=== PATIENT | female | born 1960 | race Caucasian/White ===

== ENCOUNTER → 2016-12-27 | Outpatient (CLI) | payer MEDICAID ==
[~2016-12-27] MED LIST: ADVAIR 250/28 DISKUS IH; ALBUTEROL S0.4 MG/ML PO; ALBUTEROL0.09 MG/A1 IH; ALBUTEROL0.83 MG/ML IH; AMOXICILLIN 50500 MG PO; ATARAX 25MG25 MG/TAB PO; ATIVAN 0.50.5 MG/TAB PO; ATROVENT I0.2 MG/1 M IH; BACTRIM DS 8001 TAB PO; BUSPIRONE; CELEBREX PO; CELEBREX200 MG PO; CELEXA 20MG20 MG/TAB PO; CELEXA40 MG PO; CEPHALEXIN500 M1 PO; CIPRO 500MG TA500 MG PO; CITALOPRAM20 MG PO; CLINDAMYCIN300 MG PO; COMBIVENT INH14.7 GM; COMBIVENT INH14.7 GM IH; DALIRESP500 MCG PO; DESYREL 100MG100 MG PO; DESYREL 50MG50 MG PO; DILAUDID 2MG TAB2 MG PO; DILAUDID 4MG TAB4 MG PO; DOMPERIDONE10 MG/CAP PO; DOXYCYCLINE 10100 MG PO; EXALGO12 MG PO; FLEXERIL; FLEXERIL 1010 MG/TAB PO; GABAPENTIN PO; GABAPENTIN800 MG PO; HCTZ 25MG TAB25 MG PO; LEVAQUIN 750MG750 M1 PO; LITHIUM 30300 MG/CAP PO; LODINE400 MG PO; LORTAB 5/500 501 TAB PO; LORTAB 7.5/5001 TAB PO; LYRICA 75MG CAP75 MG PO; MIDRIN; MIRALAX 255 GM255 GM; MIRALAX PA17 GM/Dose PO; MIRTAZAPINE7.5 MG PO; MORPHINE; MORPHINE 1515 MG/TAB PO; MORPHINE SULFAT30 M5 PO; MOTRIN 800800 MG/TAB PO; MS CONTIN 330 MG/TAB PO; MS CONTIN30 MG PO; MUSCLE RELAXER; MYRBETR25MG PO; NAPROSYN500 MG PO; NEURONTIN600 MG/TAB PO; NORCO 325 MG-51 TAB PO; NORCO 325 MG-7.1 TAB PO; PEGASYS180 MCG/ML MR; PEPCID40 MG PO; PERCOCET 325 MG1 TA2 PO; PHENERGAN 25 TA25 MG PO; PHENOBARBITAL; PREDNISONE20 MG PO; PRIL40; PRIL40 PO; PRILOSEC40 MG PO; PRO AIR INHALER; PROAIR HFA0.09 MG/AC; PROAIR HFA0.09 MG/AC IH; PROMETHAZINE12.5 M5 PO; PROVENTIL0.09 MG/A1 IH; ProAir; REGLAN 10MG10 MG/TAB PO; REMERON 15M15 MG/TA1 PO; RT ADVAIR 128 DISKUS IH; RT ADVAIR 228 DISKUS IH; RT SPIRIVA18 MCG IH; SEPTRA DS 8001 TAB PO; STIOLTO RESPIMAT4 GM IH; SYMBICORT1 AE1 IH; THEO-DUR 2200 MG/TAB PO; TRAMADOL; TRAZADONE; TRAZODONE HCL100 MG PO; TRIAMCINOLONE0.1% TP; ULTRAM 50MG TAB50 MG PO; VALIUM 5MG T5 MG/TAB PO; VALTREX1 GM PO; VIBRAMYCIN HYC100 MG PO; VISTARIL 2525 MG/CAP PO; VISTARIL50 MG PO; VOLTAREN 75 DR75 MG PO; ZANAFLEX 4MG TAB4 MG PO; ZOFRAN 4MG T4 MG/TAB PO; ZOLOFT; ZOLOFT100 MG PO; [UNRECOGNIZED DRUG - REMARK]
== END ==
LOC: COL.RAD 10:04
DX: M75.112 Incomplete rotator cuff tear or rupture of left shoulder, not specified as traumatic (principal); M75.22 Bicipital tendinitis, left shoulder; S46.011A Strain of muscle(s) and tendon(s) of the rotator cuff of right shoulder, initial encounter; M13.812 Other specified arthritis, left shoulder; M75.52 Bursitis of left shoulder; X58.XXXA Exposure to other specified factors, initial encounter

== ENCOUNTER 2017-06-12 15:05 | Emergency (ER) | payer MEDICAID ==
[~2017-06-12] VITALS: Ht 160 cm; Wt 54.5 kg
[~2017-06-12 15:05] MED LIST changes: -VOLTAREN 75 DR75 MG PO
[2017-06-12 15:11] VITALS: BP 111/50; TEMP 98.2
[2017-06-12] MEDS ORDERED: FLEXERIL 1010 MG/TAB PO (15:53)
[2017-06-12] MEDS ORDERED: VOLTAREN 75 DR75 MG PO (15:53)
[2017-06-12 16:27] VITALS: PULSE 93
== END 2017-06-12 16:27 | disposition home or self-care (01) ==
LOC: COL.ER 15:05
DX: M25.511 Pain in right shoulder (principal); J44.9 Chronic obstructive pulmonary disease, unspecified; F17.210 Nicotine dependence, cigarettes, uncomplicated; Z98.890 Other specified postprocedural states
CPT/HCPCS: J1885

== ENCOUNTER 2017-11-18 13:21 | Emergency (ER) | payer MEDICAID ==
[~2017-11-18] VITALS: Ht 160 cm; Wt 60.0 kg
[~2017-11-18 13:21] MED LIST changes: +VOLTAREN 75 DR75 MG PO
[2017-11-18 13:24] VITALS: BP 138/89; PULSE 94; TEMP 98.2
[2017-11-18] MEDS ORDERED: DOXYCYCLINE HY100 MG PO (14:47)
== END 2017-11-18 15:06 | disposition home or self-care (01) ==
LOC: COL.ER 13:21
DX: L03.114 Cellulitis of left upper limb (principal); L03.113 Cellulitis of right upper limb; B19.20 Unspecified viral hepatitis C without hepatic coma; F17.210 Nicotine dependence, cigarettes, uncomplicated; Z98.51 Tubal ligation status; Z98.890 Other specified postprocedural states

== ENCOUNTER 2017-12-06 16:22 | Emergency (ER) | payer MEDICAID ==
[~2017-12-06] VITALS: Ht 160 cm; Wt 59.1 kg
[~2017-12-06 16:22] MED LIST changes: +DOXYCYCLINE HY100 MG PO
[2017-12-06 16:24] VITALS: BP 93/57; TEMP 98.9
[2017-12-06 17:15] LABS: BASO # 0.1 (0.0-0.2); BASO % 0.9 % (0.0-2.0); EOS # 0.2 (0.0-0.7); EOS % 3.3 % (0-4.0); GRAN # 4.2 (1.4-6.5); GRAN % 63.4 % (42.2-75.2); HEMATOCRIT 41.3 % (37.0-47.0); HEMOGLOBIN 13.6 g/dl (12.5-16.0); LYMPH # 1.7 (1.2-3.4); MEAN CELL VOLUME 86 fl (80.0-100.0); MEAN CORPUSCULAR HEMOGLOBIN 29 pg (27.0-31.0); MEAN CORPUSCULAR HGB CONC 33 g/dl (33.0-37.0); MONO # 0.5 (0.1-0.6); MONO % 7.2 % (1.7-9.3); PLATELET COUNT 330 K/mm3 (130-400); RED BLOOD COUNT 4.78 M/mm3 (4.10-5.30)
[2017-12-06 17:45] LABS: ERYTHROCYTE SEDIMENTATION RATE 14 mm/hr (0-30)
[2017-12-06 18:13] VITALS: PULSE 91
== END 2017-12-06 18:14 | disposition home or self-care (01) ==
LOC: COL.ER 16:22
PROVIDERS: Physician Assistant
DX: M17.11 Unilateral primary osteoarthritis, right knee (principal); I10 Essential (primary) hypertension; F43.10 Post-traumatic stress disorder, unspecified; F31.9 Bipolar disorder, unspecified; B19.20 Unspecified viral hepatitis C without hepatic coma; K21.9 Gastro-esophageal reflux disease without esophagitis; F17.210 Nicotine dependence, cigarettes, uncomplicated; Z90.49 Acquired absence of other specified parts of digestive tract; Z98.890 Other specified postprocedural states; Z98.51 Tubal ligation status; Z88.0 Allergy status to penicillin

== ENCOUNTER 2018-04-17 11:48 | Emergency (ER) | payer MEDICAID ==
[~2018-04-17] VITALS: Ht 160 cm; Wt 54.5 kg
[2018-04-17 11:49] VITALS: BP 142/78; TEMP 98.1
[2018-04-17] MEDS ORDERED: PROAIR HFA0.09 MG/AC IH (11:52)
[2018-04-17] MEDS ORDERED: DALIRESP500 MCG PO (11:52)
[2018-04-17 12:23] LABS: BASO # 0.1 (0.0-0.2); BASO % 1.1 % (0.0-2.0); EOS # 0.3 (0.0-0.7); EOS % 5.1 % (0-4.0); GRAN # 3.9 (1.4-6.5); GRAN % 58.3 % (42.2-75.2); HEMATOCRIT 39.1 % (37.0-47.0); HEMOGLOBIN 12.9 g/dl (12.5-16.0); LYMPH # 1.8 (1.2-3.4); LYMPH % 27.2 % (20.0-51.0); MEAN CELL VOLUME 89 fl (80.0-100.0); MEAN CORPUSCULAR HEMOGLOBIN 30 pg (27.0-31.0); MEAN CORPUSCULAR HGB CONC 33 g/dl (33.0-37.0); MEAN PLATELET VOLUME 10.3 fl (7.4-10.4); MONO # 0.5 (0.1-0.6); MONO % 7.8 % (1.7-9.3); PLATELET COUNT 282 K/mm3 (130-400); RED BLOOD COUNT 4.38 M/mm3 (4.10-5.30); REDCELL DISTRIBUTION WIDTH-CV 13.3 % (11.5-14.5)
[2018-04-17 12:32] LABS: BILIRUBIN,TOTAL 0.1 mg/dL (0.0-1.0); C-REACTIVE PROTEIN 0.9 mg/dL (0.0-0.9); CALCIUM 8.6 mg/dL (8.4-10.2); CREATININE, serum 0.78 mg/dL (0.52-1.25); TOTAL PROTEIN 7.3 gm/dL (6.4-8.2)
[2018-04-17] MEDS ORDERED: MEDROL 4MG DOSPA4 MG PO (12:43)
[2018-04-17] MEDS ORDERED: NORCO 325 MG-51 TAB PO (12:44)
[2018-04-17 12:47] LABS: ERYTHROCYTE SEDIMENTATION RATE 11 mm/hr (0-30)
[2018-04-17 13:00] VITALS: PULSE 99
== END 2018-04-17 13:00 | disposition home or self-care (01) ==
LOC: COL.ER 11:48
PROVIDERS: Family Medicine
DX: S50.02XA Contusion of left elbow, initial encounter (principal); M54.5 Low back pain; G89.29 Other chronic pain; M06.9 Rheumatoid arthritis, unspecified; J44.9 Chronic obstructive pulmonary disease, unspecified; F17.210 Nicotine dependence, cigarettes, uncomplicated; W22.01XA Walked into wall, initial encounter
CPT/HCPCS: J2270; J2550

== ENCOUNTER 2018-05-16 11:45 | Emergency (ER) | payer MEDICAID ==
[~2018-05-16] VITALS: Ht 160 cm; Wt 56.8 kg
[~2018-05-16 11:45] MED LIST changes: +MEDROL 4MG DOSPA4 MG PO
[2018-05-16 11:51] VITALS: BP 147/81; TEMP 98.8
[2018-05-16 13:19] VITALS: PULSE 81
== END 2018-05-16 13:20 | disposition home or self-care (01) ==
LOC: COL.ER 11:45
DX: M54.5 Low back pain (principal); M45.9 Ankylosing spondylitis of unspecified sites in spine; Z90.49 Acquired absence of other specified parts of digestive tract; Z98.890 Other specified postprocedural states
CPT/HCPCS: J2270; J2550

== ENCOUNTER 2018-09-15 14:37 | Emergency (ER) | payer MEDICAID ==
[~2018-09-15] VITALS: Ht 160 cm; Wt 59.1 kg
[2018-09-15] MEDS ORDERED: ALBUTEROL SULFAT3 M3 IH (14:53)
[2018-09-15 15:18] LABS: COLLECTION METHOD CLEAN CATCH
[2018-09-15 15:23] LABS: BASO # 0.1 (0.0-0.2); BASO % 0.8 % (0.0-2.0); EOS # 0.3 (0.0-0.7); EOS % 4.1 % (0-4.0); GRAN # 4.3 (1.4-6.5); GRAN % 55.8 % (42.2-75.2); HEMATOCRIT 40.4 % (37.0-47.0); HEMOGLOBIN 13.1 g/dl (12.5-16.0); LYMPH # 2.3 (1.2-3.4); LYMPH % 29.4 % (20.0-51.0); MEAN CELL VOLUME 92 fl (80.0-100.0); MEAN CORPUSCULAR HEMOGLOBIN 30 pg (27.0-31.0); MEAN CORPUSCULAR HGB CONC 32 g/dl (33.0-37.0); MEAN PLATELET VOLUME 10.4 fl (7.4-10.4); MONO # 0.7 (0.1-0.6); MONO % 9.3 % (1.7-9.3); PLATELET COUNT 295 K/mm3 (130-400); RED BLOOD COUNT 4.37 M/mm3 (4.10-5.30); REDCELL DISTRIBUTION WIDTH-CV 13.6 % (11.5-14.5)
[2018-09-15 15:33] LABS: PH 6 (5-8); SQUAMOUS EPITHELIAL 0-2 /hpf; URINE APPEARANCE Clear; URINE BACTERIA None Seen /hpf; URINE BILIRUBIN Negative (NEGATIVE); URINE BLOOD Negative (NEGATIVE); URINE COLOR Straw; URINE GLUCOSE Negative (NEGATIVE); URINE KETONE Negative (NEGATIVE); URINE LEUKOCYTE ESTERASE Negative (NEGATIVE); URINE NITRATE Negative (NEGATIVE); URINE PROTEIN(semi-quant) Negative (NEGATIVE); URINE RBC None Seen /hpf; URINE UROBILINOGEN Negative (NEGATIVE)
[2018-09-15 15:38] LABS: ALANINE AMINOTRANSFERASE 10 U/L (9-52); ALBUMIN 4.1 gm/dL (3.5-5.0); ALKALINE PHOSPHATASE 94 U/L (50-136); ANION GAP 5 mmol/L (7-16); AST,SGOT 15 U/L (15-37); BILIRUBIN,TOTAL 0.1 mg/dL (0.0-1.0); BLOOD UREA NITROGEN 8 mg/dL (7-17); C-REACTIVE PROTEIN 1.1 mg/dL (0.0-0.9); CALCIUM 9.1 mg/dL (8.4-10.2); CARBON DIOXIDE 29 mmol/L (22-30); CHLORIDE 109 mmol/L (98-107); CREATININE, serum 0.72 mg/dL (0.52-1.25); GLUCOSE 92 mg/dL (74-106); SODIUM 143 mmol/L (137-145); TOTAL PROTEIN 7.4 gm/dL (6.4-8.2)
[2018-09-15 15:46] LABS: TROPONIN-I < 0.012 ng/mL (0.000-0.034)
[2018-09-15 17:10] VITALS: BP 114/71; PULSE 60; TEMP 97.7
== END 2018-09-15 17:10 | disposition home or self-care (01) ==
LOC: COL.ER 14:37
PROVIDERS: Emergency Medicine
DX: S30.0XXA Contusion of lower back and pelvis, initial encounter (principal); R55 Syncope and collapse; Z88.5 Allergy status to narcotic agent; W19.XXXA Unspecified fall, initial encounter; Y92.009 Unspecified place in unspecified non-institutional (private) residence as the place of occurrence of the external cause
CPT/HCPCS: J1170; J1885; J7030

== ENCOUNTER 2018-10-03 18:26 | Emergency (ER) | payer MEDICAID ==
[~2018-10-03] VITALS: Ht 160 cm; Wt 59.1 kg
[~2018-10-03 18:26] MED LIST changes: +ALBUTEROL SULFAT3 M3 IH
[2018-10-03 18:39] VITALS: TEMP 98.4
[2018-10-03 19:24] LABS: BASO # 0.1 (0.0-0.2); BASO % 0.8 % (0.0-2.0); EOS # 0.4 (0.0-0.7); EOS % 5.3 % (0-4.0); GRAN # 4.6 (1.4-6.5); GRAN % 55.4 % (42.2-75.2); HEMATOCRIT 40.1 % (37.0-47.0); HEMOGLOBIN 13.3 g/dl (12.5-16.0); LYMPH # 2.4 (1.2-3.4); MEAN CELL VOLUME 91 fl (80.0-100.0); MEAN CORPUSCULAR HEMOGLOBIN 30 pg (27.0-31.0); MEAN CORPUSCULAR HGB CONC 33 g/dl (33.0-37.0); MEAN PLATELET VOLUME 10.7 fl (7.4-10.4); MONO # 0.8 (0.1-0.6); MONO % 9.1 % (1.7-9.3); PLATELET COUNT 134 K/mm3 (130-400); RED BLOOD COUNT 4.41 M/mm3 (4.10-5.30); REDCELL DISTRIBUTION WIDTH-CV 13.6 % (11.5-14.5)
[2018-10-03 19:33] LABS: ALANINE AMINOTRANSFERASE 15 U/L (9-52); ALBUMIN 4.4 gm/dL (3.5-5.0); ALKALINE PHOSPHATASE 116 U/L (50-136); ANION GAP 8 mmol/L (7-16); AST,SGOT 31 U/L (15-37); BILIRUBIN,TOTAL 0.3 mg/dL (0.0-1.0); BLOOD UREA NITROGEN 8 mg/dL (7-17); CALCIUM 9.7 mg/dL (8.4-10.2); CARBON DIOXIDE 27 mmol/L (22-30); CHLORIDE 108 mmol/L (98-107); CREATININE, serum 0.78 mg/dL (0.52-1.25); GLUCOSE 100 mg/dL (74-106); POTASSIUM 4.3 mmol/L (3.4-5.0); SODIUM 142 mmol/L (137-145); TOTAL PROTEIN 7.8 gm/dL (6.4-8.2)
[2018-10-03 19:46] LABS: TROPONIN-I < 0.012 ng/mL (0.000-0.034)
[2018-10-03] MEDS ORDERED: PREDNISONE20 MG PO (21:06)
[2018-10-03] MEDS ORDERED: DOXYCYCLINE HY100 MG PO (21:06)
[2018-10-03] MEDS ORDERED: TESSALON P100 MG/CAP PO (21:06)
[2018-10-03 21:35] VITALS: BP 108/71; PULSE 100
== END 2018-10-03 21:36 | disposition home or self-care (01) ==
LOC: COL.ER 18:26
PROVIDERS: Emergency Medicine
DX: J44.1 Chronic obstructive pulmonary disease with (acute) exacerbation (principal); I10 Essential (primary) hypertension; F17.210 Nicotine dependence, cigarettes, uncomplicated
CPT/HCPCS: J1885; J7030; J7512

== ENCOUNTER 2018-11-19 07:21 | Outpatient (CLI) | payer MEDICAID ==
[~2018-11-19] VITALS: Ht 160.1 cm; Wt 62.5 kg
[~2018-11-19 07:21] MED LIST changes: +TESSALON P100 MG/CAP PO
[2018-11-19] MEDS ORDERED: BEVESPI AEROS10.7 GM IH (07:41)
[2018-11-19 07:48] VITALS: BP 134/79; PULSE 85; TEMP 97.3
[2018-11-19] MEDS ORDERED: ERY-TAB500 MG PO (08:55)
[2018-11-19 09:10] VITALS: BP 139/82; PULSE 67
--- NOTE | 2018-11-19 09:10 | NUR ---
Report from Meghna KC from [facility]. Loop recorder insertion complete. Pt resting well in bed.
[2018-11-19 09:25] VITALS: BP 120/80; PULSE 87; TEMP 98.8
--- NOTE | 2018-11-19 09:30 | NUR ---
Pt ambulated with cane and SBA.
--- NOTE | 2018-11-19 09:35 | NUR ---
Pt discharged per w/c by nurse with .
== END 2018-11-19 09:38 | disposition home or self-care (01) ==
LOC: COL.CAR 07:21
DX: R55 Syncope and collapse (principal); M19.90 Unspecified osteoarthritis, unspecified site; J45.909 Unspecified asthma, uncomplicated; G89.29 Other chronic pain; F31.89 Other bipolar disorder; K31.84 Gastroparesis; K21.9 Gastro-esophageal reflux disease without esophagitis; K58.8 Other irritable bowel syndrome; E04.9 Nontoxic goiter, unspecified; I35.8 Other nonrheumatic aortic valve disorders; I45.6 Pre-excitation syndrome; R56.9 Unspecified convulsions; Z90.49 Acquired absence of other specified parts of digestive tract; Z88.0 Allergy status to penicillin; Z88.1 Allergy status to other antibiotic agents; Z88.5 Allergy status to narcotic agent; Z88.2 Allergy status to sulfonamides; Z87.891 Personal history of nicotine dependence; Z82.61 Family history of arthritis
CPT/HCPCS: C1764

== ENCOUNTER → 2018-12-12 | Outpatient (CLI) | payer MEDICAID ==
[~2018-12-12] MED LIST changes: +BEVESPI AEROS10.7 GM IH; +ERY-TAB500 MG PO
[2018-12-12 23:07] LABS: RHEUMATOID FACTOR-SCREEN <15 IU/mL (0-29)
== END ==
LOC: COL.LAB 12:23
PROVIDERS: Family Medicine
DX: M25.50 Pain in unspecified joint (principal)

== ENCOUNTER → 2018-12-30 | Outpatient (CLI) | payer MEDICAID | LOC: COL.RAD 11:57 | DX: M47.26 Other spondylosis with radiculopathy, lumbar region (principal); M41.86 Other forms of scoliosis, lumbar region; M48.07 Spinal stenosis, lumbosacral region; M47.22 Other spondylosis with radiculopathy, cervical region; M48.02 Spinal stenosis, cervical region ==

== ENCOUNTER 2019-01-01 10:49 | Outpatient (CLI) | payer MEDICAID ==
[~2019-01-01] VITALS: Ht 160.2 cm; Wt 66.0 kg
[2019-01-01 11:31] LABS: HEMATOCRIT 40.5 % (37.0-47.0); HEMOGLOBIN 13.2 g/dl (12.5-16.0); MEAN CELL VOLUME 89 fl (80.0-100.0); MEAN CORPUSCULAR HEMOGLOBIN 29 pg (27.0-31.0); MEAN CORPUSCULAR HGB CONC 33 g/dl (33.0-37.0); PLATELET COUNT 238 K/mm3 (130-400); RED BLOOD COUNT 4.56 M/mm3 (4.10-5.30); REDCELL DISTRIBUTION WIDTH-CV 13.6 % (11.5-14.5)
[2019-01-01 11:41] LABS: INR 0.9 (0.8-3.0); PROTHROMBIN TIME 10.5 SECONDS (9.7-12.8)
[2019-01-01 11:46] LABS: CREATININE, serum 0.74 (0.52-1.25); POTASSIUM 4.2 mmol/L (3.4-5.0)
[2019-01-01 12:32] VITALS: BP 124/60; PULSE 67
[2019-01-01] MEDS ORDERED: PRINIVIL5 MG PO (13:44)
[2019-01-01 13:59] VITALS: BP 103/59; PULSE 74
--- NOTE | 2019-01-01 13:59 | NUR ---
Report received from [facility].
[2019-01-01 14:15] VITALS: BP 106/61; PULSE 82
[2019-01-01 14:30] VITALS: BP 108/77; PULSE 85
[2019-01-01 14:45] VITALS: BP 103/69; PULSE 90
[2019-01-01 15:00] VITALS: BP 105/62; PULSE 70
--- NOTE | 2019-01-01 15:05 | NUR ---
Discharge instructions given to pt.Pt verbalizes understanding.INT removed,catheter tip intact.Pt escorted out via wheelchair by this nurse.
== END 2019-01-01 15:08 | disposition home or self-care (01) ==
LOC: COL.RAD 10:49
PROVIDERS: Internal Medicine Cardiovascular Disease
DX: I34.8 Other nonrheumatic mitral valve disorders (principal)
CPT/HCPCS: J2704

== ENCOUNTER → 2019-02-12 | Outpatient (CLI) | payer MEDICAID ==
[~2019-02-12] MED LIST changes: +PRINIVIL5 MG PO
== END ==
LOC: COL.RAD 13:15
DX: M48.03 Spinal stenosis, cervicothoracic region (principal); M54.16 Radiculopathy, lumbar region

== ENCOUNTER 2019-03-08 10:56 | Emergency (ER) | payer MEDICAID ==
[~2019-03-08] VITALS: Ht 160 cm; Wt 61.4 kg
[2019-03-08 11:00] VITALS: TEMP 97.6
[2019-03-08] MEDS ORDERED: IPRATROPIUM BROM3 M1 IH (11:17)
[2019-03-08] MEDS ORDERED: LASIX 20MG TABL20 MG PO (11:21)
[2019-03-08] MEDS ORDERED: PREDNISONE20 MG PO (12:43)
[2019-03-08] MEDS ORDERED: NEURONTIN300 MG/CAP PO (12:43)
[2019-03-08] MEDS ORDERED: FLEXERIL 1010 MG/TAB PO (12:43)
[2019-03-08 13:06] VITALS: BP 111/88; PULSE 60
== END 2019-03-08 13:15 | disposition home or self-care (01) ==
LOC: COL.ER 10:56
DX: M54.5 Low back pain (principal); I10 Essential (primary) hypertension; F31.9 Bipolar disorder, unspecified; F90.9 Attention-deficit hyperactivity disorder, unspecified type; Z90.49 Acquired absence of other specified parts of digestive tract; Z90.710 Acquired absence of both cervix and uterus; F17.210 Nicotine dependence, cigarettes, uncomplicated; F12.90 Cannabis use, unspecified, uncomplicated
CPT/HCPCS: J1885; J3010; J7512

== ENCOUNTER 2019-04-20 12:14 | Emergency (ER) | payer MEDICAID ==
[~2019-04-20] VITALS: Ht 160 cm; Wt 61.4 kg
[~2019-04-20 12:14] MED LIST changes: +IPRATROPIUM BROM3 M1 IH; +LASIX 20MG TABL20 MG PO; +NEURONTIN300 MG/CAP PO
[2019-04-20 12:22] VITALS: BP 154/97; TEMP 98.9
[2019-04-20 14:38] VITALS: PULSE 81
== END 2019-04-20 14:40 | disposition home or self-care (01) ==
LOC: COL.ER 12:14
DX: M54.5 Low back pain (principal); I10 Essential (primary) hypertension; J44.9 Chronic obstructive pulmonary disease, unspecified; F31.9 Bipolar disorder, unspecified; F43.10 Post-traumatic stress disorder, unspecified; B19.20 Unspecified viral hepatitis C without hepatic coma; G90.09 Other idiopathic peripheral autonomic neuropathy; F17.290 Nicotine dependence, other tobacco product, uncomplicated; F12.90 Cannabis use, unspecified, uncomplicated; Z90.49 Acquired absence of other specified parts of digestive tract; Z98.890 Other specified postprocedural states; Z79.52 Long term (current) use of systemic steroids
CPT/HCPCS: J1885

== ENCOUNTER 2020-04-05 12:14 | Emergency (ER) | payer MEDICAID ==
[~2020-04-05] VITALS: Ht 160 cm; Wt 52.3 kg
[2020-04-05 12:19] VITALS: TEMP 97.7
[2020-04-05 12:45] LABS: BASO # 0.1 (0.0-0.2); BASO % 0.7 % (0.0-2.0); EOS # 0.3 (0.0-0.7); EOS % 3.7 % (0-4.0); GRAN # 3.5 (1.4-6.5); GRAN % 50.1 % (42.2-75.2); HEMOGLOBIN 15.4 g/dl (12.5-16.0); LYMPH # 2.7 (1.2-3.4); LYMPH % 38.1 % (20.0-51.0); MEAN CELL VOLUME 91 fl (80.0-100.0); MEAN CORPUSCULAR HEMOGLOBIN 30 pg (27.0-31.0); MEAN CORPUSCULAR HGB CONC 34 g/dl (33.0-37.0); MONO # 0.5 (0.1-0.6); MONO % 7.1 % (1.7-9.3); PLATELET COUNT 341 K/mm3 (130-400); RED BLOOD COUNT 5.07 M/mm3 (4.10-5.30); REDCELL DISTRIBUTION WIDTH-CV 13.2 % (11.5-14.5)
[2020-04-05 12:48] LABS: ALANINE AMINOTRANSFERASE 11 U/L (4-34); ALBUMIN 4.7 gm/dL (3.5-5.0); ALKALINE PHOSPHATASE 113 U/L (50-136); ANION GAP 9 mmol/L (7-16); AST,SGOT 24 U/L (15-37); BILIRUBIN,TOTAL 0.6 mg/dL (0.0-1.0); BLOOD UREA NITROGEN 11 mg/dL (7-17); CALCIUM 9.9 mg/dL (8.4-10.2); CARBON DIOXIDE 25 mmol/L (22-30); CHLORIDE 106 mmol/L (98-107); CREATININE, serum 0.74 (0.52-1.25); GLUCOSE 94 mg/dL (74-106); LIPASE 157 U/L (23-300); POTASSIUM 3.6 mmol/L (3.4-5.0); SODIUM 139 mmol/L (137-145); TOTAL PROTEIN 8.4 gm/dL (6.4-8.2)
[2020-04-05 13:03] LABS: TROPONIN-I < 0.012 ng/mL (0.000-0.035)
[2020-04-05 13:39] LABS: COLLECTION METHOD CLEAN CATCH
[2020-04-05 13:46] LABS: MUCOUS Present /lpf; PH 6 (5-8); SQUAMOUS EPITHELIAL 0-2 /hpf; URINE APPEARANCE Clear; URINE BACTERIA None Seen /hpf; URINE BILIRUBIN Negative (NEGATIVE); URINE BLOOD Negative (NEGATIVE); URINE COLOR Yellow; URINE GLUCOSE Negative (NEGATIVE); URINE KETONE Negative (NEGATIVE); URINE LEUKOCYTE ESTERASE Negative (NEGATIVE); URINE NITRATE Negative (NEGATIVE); URINE PROTEIN(semi-quant) Negative (NEGATIVE); URINE RBC 0-2 /hpf; URINE UROBILINOGEN Negative (NEGATIVE)
[2020-04-05] MEDS ORDERED: CARAFATE 1GM1 G PO (15:18)
[2020-04-05] MEDS ORDERED: PROTONIX 40MG T40 MG PO (15:18)
[2020-04-05 16:30] VITALS: BP 137/95; PULSE 83
== END 2020-04-05 16:53 | disposition home or self-care (01) ==
LOC: COL.ER 12:14
PROVIDERS: Emergency Medicine
DX: R07.2 Precordial pain (principal); K21.9 Gastro-esophageal reflux disease without esophagitis; I10 Essential (primary) hypertension; J44.9 Chronic obstructive pulmonary disease, unspecified; F17.210 Nicotine dependence, cigarettes, uncomplicated; G89.29 Other chronic pain; Z88.0 Allergy status to penicillin; Z88.2 Allergy status to sulfonamides; Z88.6 Allergy status to analgesic agent; Z79.52 Long term (current) use of systemic steroids
CPT/HCPCS: J7040

== ENCOUNTER 2020-04-22 15:15 | Observation (INO) | payer MEDICAID ==
[~2020-04-22] VITALS: Ht 160 cm; Wt 46.5 kg
[~2020-04-22 15:15] MED LIST changes: +CARAFATE 1GM1 G PO; +PROTONIX 40MG T40 MG PO
[2020-04-22 15:59] VITALS: BP 128/71; PULSE 65; TEMP 97.7
[2020-04-22] MEDS ORDERED: NEURONTIN300 MG/CAP PO ×2 (16:13→16:15)
[2020-04-22] MEDS ORDERED: ZESTRIL 5MG5 MG PO (16:16)
[2020-04-22] MEDS ORDERED: SALONPAS1 EACH TP (16:19)
[2020-04-22 16:44] LABS: BASO # 0.1 (0.0-0.2); BASO % 1.1 % (0.0-2.0); EOS # 0.4 (0.0-0.7); EOS % 4.4 % (0-4.0); GRAN # 4.5 (1.4-6.5); GRAN % 55.8 % (42.2-75.2); HEMATOCRIT 44.7 % (37.0-47.0); HEMOGLOBIN 14.7 g/dl (12.5-16.0); LYMPH # 2.5 (1.2-3.4); LYMPH % 30.6 % (20.0-51.0); MEAN CELL VOLUME 91 fl (80.0-100.0); MEAN CORPUSCULAR HEMOGLOBIN 30 pg (27.0-31.0); MEAN CORPUSCULAR HGB CONC 33 g/dl (33.0-37.0); MONO # 0.7 (0.1-0.6); PLATELET COUNT 297 K/mm3 (130-400); RED BLOOD COUNT 4.93 M/mm3 (4.10-5.30); REDCELL DISTRIBUTION WIDTH-CV 12.8 % (11.5-14.5)
[2020-04-22 16:53] LABS: ALANINE AMINOTRANSFERASE 8 U/L (4-34); ALBUMIN 4.3 gm/dL (3.5-5.0); ALKALINE PHOSPHATASE 94 U/L (50-136); ANION GAP 4 mmol/L (7-16); AST,SGOT 16 U/L (15-37); BILIRUBIN,TOTAL 0.5 mg/dL (0.0-1.0); BLOOD UREA NITROGEN 9 mg/dL (7-17); CALCIUM 9.6 mg/dL (8.4-10.2); CARBON DIOXIDE 27 mmol/L (22-30); CHLORIDE 106 mmol/L (98-107); CREATININE, serum 0.74 (0.52-1.25); GLUCOSE 100 mg/dL (74-106); MAGNESIUM 2.2 mg/dL (1.6-2.3); POTASSIUM 4.5 mmol/L (3.4-5.0); SODIUM 138 mmol/L (137-145); TOTAL PROTEIN 7.5 gm/dL (6.4-8.2)
[2020-04-22 17:15] LABS: TROPONIN-I < 0.012 ng/mL (0.000-0.035)
--- NOTE | 2020-04-22 19:00 | NUR ---
PT TALKING ON PHONE. TELEMETRY INTACT. SR W/ INVERTED T WAVE. NO CHEST PAIN AT THIOS TIME. DENIES NEEDS. CALL LIGHT IN REACH.
--- NOTE | 2020-04-22 19:00 | NUR ---
PT RESTING IN BED. TALKING ON CELL PHONE. REPORT GIVEN FROM ROLANDO SILVA RN. NO TELEMETRY ON AT THIS TIME. PT DENIES CHEST PAIN. NO DYSPNEA NOTED. CALL LIGHT IN REACH.
[2020-04-22 20:09] VITALS: BP 127/74; PULSE 74; TEMP 98.3
--- NOTE | 2020-04-22 20:30 | NUR ---
CAMPGROUND MANAGER PLACED. NOTIFIED TELEMETRY FOR READING. SR AT THIS TIME. HAD TO WAKE PT UP TO PLACE MONITOR. PT RELATED CHEST PAIN 7-8 LT SIDE. PT CALM WITH NO NONVERBALINDICATION OF PAIN. PT RETURNS TO SLEEP NURSE WAS STILL IN ROOM.
--- NOTE | 2020-04-22 21:26 | NUR ---
HAD TO WAKE PT TO GIVE HS MEDS. NO PAIN AT THIS TIME. RETURNS TO SLEEP. INT NEEDLE TO LT F/A CDI
[2020-04-23 00:27] VITALS: BP 118/61; PULSE 66; TEMP 98.1
--- NOTE | 2020-04-23 02:16 | NUR ---
PT CONTINUES SLEEPING. NO DISTRESS.
[2020-04-23 04:07] VITALS: BP 137/78; PULSE 69; TEMP 97.6
[2020-04-23 06:03] LABS: BASO # 0.1 (0.0-0.2); BASO % 1.1 % (0.0-2.0); EOS # 0.4 (0.0-0.7); EOS % 6.5 % (0-4.0); GRAN # 2.6 (1.4-6.5); GRAN % 41.8 % (42.2-75.2); HEMATOCRIT 46.4 % (37.0-47.0); HEMOGLOBIN 15.4 g/dl (12.5-16.0); LYMPH # 2.7 (1.2-3.4); LYMPH % 42.9 % (20.0-51.0); MEAN CELL VOLUME 91 fl (80.0-100.0); MEAN CORPUSCULAR HEMOGLOBIN 30 pg (27.0-31.0); MEAN CORPUSCULAR HGB CONC 33 g/dl (33.0-37.0); MEAN PLATELET VOLUME 10.2 fl (7.4-10.4); MONO # 0.5 (0.1-0.6); MONO % 7.5 % (1.7-9.3); PLATELET COUNT 305 K/mm3 (130-400); RED BLOOD COUNT 5.09 M/mm3 (4.10-5.30); REDCELL DISTRIBUTION WIDTH-CV 12.8 % (11.5-14.5)
[2020-04-23 06:15] LABS: ANION GAP 6 mmol/L (7-16); BLOOD UREA NITROGEN 10 mg/dL (7-17); CALCIUM 9.6 mg/dL (8.4-10.2); CARBON DIOXIDE 27 mmol/L (22-30); CHLORIDE 107 mmol/L (98-107); CHOLESTEROL 160 mg/dL (120-200); CHOLESTEROL RISK RATIO 5.1; CREATININE, serum 0.81 (0.52-1.25); GLUCOSE 100 mg/dL (74-106); HDL CHOLESTEROL 31 mg/dL; LDL CHOLESTEROL 91 mg/dL; POTASSIUM 4.4 mmol/L (3.4-5.0); SODIUM 139 mmol/L (137-145); TRIGLYCERIDE 192 mg/dL
[2020-04-23 06:26] LABS: TROPONIN-I < 0.012 ng/mL (0.000-0.035)
--- NOTE | 2020-04-23 06:28 | NUR ---
PT HAS SLEPT THROUGH THE NIGHT. NO DISTRESS. QUIET UNEVENTFUL NIGHT.
[2020-04-23 07:09] VITALS: BP 152/75; PULSE 61; TEMP 98.3
--- NOTE | 2020-04-23 10:30 | NUR ---
Patient has been loudly arguing with her over the phone. She is upset and hoping to discharge this am. She denies chest pain this am. Vital signs are stable. Explain after the tests are complete and Dr Tatum sees her, she can hopefully discharge. No other changes at this time. Call light within reach.
[2020-04-23 11:13] VITALS: BP 157/79; PULSE 74; TEMP 98.4
--- NOTE | 2020-04-23 12:28 | NUR ---
Lab Tester prayed and listened extensively to patient while they talked.
--- NOTE | 2020-04-23 12:37 | NUR ---
SW met with patient to complete intake. Patient states upon arrival that she does not need a Windows Deployment Technician or any case managment services and that she has every thing she needs. SW asked if she could as a few questions, and patient stated yes. Patient states that she lives in [place] with her [employer] [phone], . Patient states that she uses a cane and walker at home. Patient states that she is independent with ADL's. Patient also states that she utilized [facility] for Home health services, but does not want them to come at this time due to the virus. SW asked if she could send updates at some point to continue services and patient states that she has all the numbers for them and she will call them when she is ready to obtain services. Patient states that she does not want anyone in her home until the COVID virus is under control. Patient states that she utilizes [facility] to obtain her medications and that she is able to afford he medications. Patient provides that she does not have a DPOA-HC and does not want to appoint anyone as her DPOA-HC at this time due to her and her going to do so in the near future with her own airport operations specialist. Patient states she will be going back to her home in [place] up on discharge and does not have any questions or concerns in regards to her discharge. SW to continue to follow.
--- NOTE | 2020-04-23 14:20 | NUR ---
Dr Garg seen patient and is discharging her home. Patient has been yelling and cursing in room about going home. She took off her telemetry and removed her IV on her own. She is upset because she has been having issues with her at home. Asked if she was comfortable going home to him because they have not been getting along, she stated he is not there and that is the problem. She was planning to walk home but was able to find a ride. Explained she needs to see her special ed assistant and primary care doctor. She verbalized understanding. Copies of discharge instructions sent with patient. All belongings packed up by her. Patient walked out with this nurse.
== END 2020-04-23 14:30 | disposition home or self-care (01) ==
LOC: MEDICAL 15:15 → JCC 15:35
PROVIDERS: Physician Assistant; ADMIT Student in an Organized Health Care Education/Training Program
DX: R07.9 Chest pain, unspecified (principal); I08.3 Combined rheumatic disorders of mitral, aortic and tricuspid valves; F31.9 Bipolar disorder, unspecified; I42.0 Dilated cardiomyopathy; I73.9 Peripheral vascular disease, unspecified; G40.909 Epilepsy, unspecified, not intractable, without status epilepticus; J44.9 Chronic obstructive pulmonary disease, unspecified; K21.9 Gastro-esophageal reflux disease without esophagitis; E44.0 Moderate protein-calorie malnutrition; G89.29 Other chronic pain; M54.9 Dorsalgia, unspecified; F90.9 Attention-deficit hyperactivity disorder, unspecified type; I45.6 Pre-excitation syndrome; K58.9 Irritable bowel syndrome, unspecified; M10.9 Gout, unspecified; F17.210 Nicotine dependence, cigarettes, uncomplicated; Z88.1 Allergy status to other antibiotic agents; Z88.5 Allergy status to narcotic agent; Z88.0 Allergy status to penicillin; Z88.2 Allergy status to sulfonamides; Z79.82 Long term (current) use of aspirin; Z79.899 Other long term (current) drug therapy
CPT/HCPCS: 99223-AI; G0378

== ENCOUNTER 2021-02-28 19:32 | Emergency (ER) | payer MEDICAID ==
[~2021-02-28] VITALS: Ht 160 cm; Wt 58.2 kg
[~2021-02-28 19:32] MED LIST changes: +SALONPAS1 EACH TP; +ZESTRIL 5MG5 MG PO
[2021-02-28 19:38] VITALS: TEMP 98.1
[2021-02-28 20:40] LABS: BASO # 0.1 (0.0-0.2); BASO % 0.7 % (0.0-2.0); EOS # 0.3 (0.0-0.7); EOS % 3.7 % (0-4.0); GRAN # 4.7 (1.4-6.5); GRAN % 61.2 % (42.2-75.2); HEMATOCRIT 46.6 % (37.0-47.0); HEMOGLOBIN 15.4 g/dl (12.5-16.0); LYMPH % 26.5 % (20.0-51.0); MEAN CELL VOLUME 89 fl (80.0-100.0); MEAN CORPUSCULAR HEMOGLOBIN 29 pg (27.0-31.0); MEAN CORPUSCULAR HGB CONC 33 g/dl (33.0-37.0); MEAN PLATELET VOLUME 10.2 fl (7.4-10.4); MONO # 0.6 (0.1-0.6); MONO % 7.6 % (1.7-9.3); PLATELET COUNT 324 K/mm3 (130-400); RED BLOOD COUNT 5.25 M/mm3 (4.10-5.30)
[2021-02-28 20:48] LABS: ALBUMIN 4.8 gm/dL (3.5-5.0); BILIRUBIN,TOTAL 0.4 mg/dL (0.0-1.0); CALCIUM 9.5 mg/dL (8.4-10.2); CREATININE, serum 0.72 (0.52-1.25); POTASSIUM 3.9 mmol/L (3.4-5.0)
[2021-02-28] MEDS ORDERED: FLAGYL500 MG PO (21:10)
[2021-02-28] MEDS ORDERED: CIPRO 500MG TA500 MG PO (21:11)
[2021-02-28 21:20] VITALS: BP 130/60; PULSE 80
[2021-02-28 21:20] LABS: ERYTHROCYTE SEDIMENTATION RATE 2 mm/hr (0-30)
== END 2021-02-28 21:30 | disposition home or self-care (01) ==
LOC: COL.ER 19:32
PROVIDERS: Emergency Medicine
DX: S61.431A Puncture wound without foreign body of right hand, initial encounter (principal); L08.9 Local infection of the skin and subcutaneous tissue, unspecified; I10 Essential (primary) hypertension; J44.9 Chronic obstructive pulmonary disease, unspecified; G89.29 Other chronic pain; M54.9 Dorsalgia, unspecified; K21.9 Gastro-esophageal reflux disease without esophagitis; Z79.899 Other long term (current) drug therapy; W55.01XA Bitten by cat, initial encounter

== ENCOUNTER → 2021-03-08 | Outpatient (CLI) | payer MEDICAID ==
[~2021-03-08] MED LIST changes: +FLAGYL500 MG PO; +PRINIVIL20 MG PO; +TRELEGY ELLIPT1 EACH IH
== END ==
LOC: COL.RAD 12:59
DX: J44.9 Chronic obstructive pulmonary disease, unspecified (principal); Z90.49 Acquired absence of other specified parts of digestive tract; Z87.891 Personal history of nicotine dependence

== ENCOUNTER 2021-04-25 09:34 | Day surgery (SDC) | payer MEDICAID ==
[~2021-04-25] VITALS: Ht 160 cm; Wt 56.7 kg
[2021-04-25] VITALS (12 sets, daily range): BP systolic 135–172; BP diastolic 87–105; PULSE 74–82
[~2021-04-25 09:34] MED LIST changes: -PRINIVIL20 MG PO; -TRELEGY ELLIPT1 EACH IH
[2021-04-25 10:27] LABS: HEMATOCRIT 39.7 % (37.0-47.0); HEMOGLOBIN 13.2 g/dl (12.5-16.0); MEAN CELL VOLUME 88 fl (80.0-100.0); MEAN CORPUSCULAR HEMOGLOBIN 29 pg (27.0-31.0); MEAN CORPUSCULAR HGB CONC 33 g/dl (33.0-37.0); MEAN PLATELET VOLUME 9.9 fl (7.4-10.4); PLATELET COUNT 289 K/mm3 (130-400); RED BLOOD COUNT 4.52 M/mm3 (4.10-5.30); REDCELL DISTRIBUTION WIDTH-CV 13.2 % (11.5-14.5)
[2021-04-25] MEDS ORDERED: PRINIVIL20 MG PO (10:31)
[2021-04-25] MEDS ORDERED: TRELEGY ELLIPT1 EACH IH (10:32)
[2021-04-25] MEDS ORDERED: PROAIR HFA0.09 MG/AC IH (10:33)
[2021-04-25] MEDS ORDERED: PRIL40 PO (10:33)
[2021-04-25] MEDS ORDERED: NORCO 325 MG-7.1 TAB PO (10:36)
[2021-04-25 10:38] LABS: CALCIUM 9.4 mg/dL (8.4-10.2); CREATININE, serum 0.78 (0.52-1.25); POTASSIUM 3.8 mmol/L (3.4-5.0); PROTHROMBIN TIME 11.1 SECONDS (9.7-12.8)
[2021-04-25 10:40] LABS: PARTIAL THROMBOPLASTIN TIME 29.2 SECONDS (26.0-37.0)
--- NOTE | 2021-04-25 15:00 | NUR ---
3ml of air released from band,no bleeding observed at this time.
--- NOTE | 2021-04-25 15:20 | NUR ---
Bleeding observed at right radial site.3ml of air reinstilled into band.
--- NOTE | 2021-04-25 17:15 | NUR ---
All air release from right radial band in 2-4 ml incriments.No bleeding observed at site.Dressing applied.
--- NOTE | 2021-04-25 17:39 | NUR ---
Discharge instructions given to pt.Pt verbalizes understanding.INT removed,catheter tip intact.Dressing to right wrist observed clean,dry,intact and soft to touch.
--- NOTE | 2021-04-25 18:02 | NUR ---
Pt escorted out via wheelchair by Adriano Sterling.
== END 2021-04-25 18:03 ==
LOC: COL.CAR 09:34
PROVIDERS: Internal Medicine Interventional Cardiology
DX: R07.89 Other chest pain (principal); M79.604 Pain in right leg; M79.605 Pain in left leg; F17.200 Nicotine dependence, unspecified, uncomplicated; Z95.818 Presence of other cardiac implants and grafts; Z20.822 Contact with and (suspected) exposure to COVID-19; Z79.899 Other long term (current) drug therapy
CPT/HCPCS: C1769; J1644; J2250; J3010

== ENCOUNTER 2022-05-28 21:30 | Emergency (ER) | payer MEDICAID ==
[~2022-05-28] VITALS: Ht 160 cm; Wt 54.5 kg
[~2022-05-28 21:30] MED LIST changes: +PRINIVIL20 MG PO; +TRELEGY ELLIPT1 EACH IH
[2022-05-28 21:36] VITALS: TEMP 98.7
[2022-05-28] MEDS ORDERED: PREDNISONE20 MG PO (22:44)
[2022-05-28] MEDS ORDERED: DOXYCYCLINE 10100 MG PO (22:44)
[2022-05-28 22:47] VITALS: BP 135/81; PULSE 92
== END 2022-05-28 23:00 | disposition home or self-care (01) ==
LOC: COL.ER 21:30
DX: S70.361A Insect bite (nonvenomous), right thigh, initial encounter (principal); L03.115 Cellulitis of right lower limb; T78.40XA Allergy, unspecified, initial encounter; F17.210 Nicotine dependence, cigarettes, uncomplicated; Z88.0 Allergy status to penicillin; W57.XXXA Bitten or stung by nonvenomous insect and other nonvenomous arthropods, initial encounter
CPT/HCPCS: J1200; J7030; J7512

== ENCOUNTER 2024-02-07 14:28 | Emergency (ER) | payer MEDICAID ==
[~2024-02-07] VITALS: Ht 157.5 cm; Wt 52.3 kg
[~2024-02-07 14:28] MED LIST changes: +PREDNISONE50 MG PO
[2024-02-07 14:38] VITALS: TEMP 98.3
[2024-02-07] MEDS ORDERED: NS 1,000 ML IV ONE (16:45)
[2024-02-07 17:14] LABS: BASO # 0.1 K/mm3 (0.0-0.2); BASO % 0.5 % (0.0-2.0); EOS # 0.4 K/mm3 (0.0-0.7); EOS % 3.2 % (0.0-4.0); GRAN # 8.6 K/mm3 (1.4-6.5); HEMATOCRIT 43.5 % (37.0-47.0); HEMOGLOBIN 14.2 g/dl (12.5-16.0); LYMPH # 1.5 K/mm3 (1.2-3.4); LYMPH % 12.5 % (20.0-51.0); MEAN CELL VOLUME 87 fl (80.0-100.0); MEAN CORPUSCULAR HEMOGLOBIN 29 pg (27-31); MEAN CORPUSCULAR HGB CONC 33 g/dl (33.0-37.0); MEAN PLATELET VOLUME 9.8 fl (7.4-10.4); MONO # 1.1 K/mm3 (0.1-0.6); MONO % 9.1 % (1.7-9.3); PLATELET COUNT 357 K/mm3 (130-400); RED BLOOD COUNT 4.99 M/mm3 (4.10-5.30); REDCELL DISTRIBUTION WIDTH-CV 14.2 % (11.5-14.5)
[2024-02-07 17:33] LABS: ALBUMIN 3.3 g/dL (3.4-4.8); BILIRUBIN,TOTAL 0.3 mg/dL (0.2-1.2); C-REACTIVE PROTEIN 3.77 mg/dL (0.00-0.50); CALCIUM 9.9 mg/dL (8.4-10.2); CREATININE, serum 0.88 mg/dL (0.57-1.11); TOTAL PROTEIN 7.5 g/dl (6.2-8.1)
[2024-02-07] MEDS ORDERED: Iohexol 300 - 100 ML VIAL IV ONE (17:45)
[2024-02-07] MEDS ORDERED: NS 50 ML IV SCH (17:45)
[2024-02-07] MEDS ORDERED: Doxycycline Monohydrate 100 MG CAP PO ONE (18:45)
[2024-02-07] MEDS ORDERED: DOXYCYCLINE 10100 MG PO (18:50)
[2024-02-07 18:57] VITALS: BP 117/74; PULSE 97
== END 2024-02-07 18:58 | disposition home or self-care (01) ==
LOC: COL.ER 14:28
PROVIDERS: Nurse Practitioner
DX: L03.313 Cellulitis of chest wall (principal); F17.210 Nicotine dependence, cigarettes, uncomplicated; Z88.0 Allergy status to penicillin; Z88.1 Allergy status to other antibiotic agents; Z88.2 Allergy status to sulfonamides
CPT/HCPCS: J7030; Q9967